=== PATIENT | female | born 1935 | race Caucasian/White ===

== ENCOUNTER 2018-11-03 17:34 | Emergency (ER) | payer OTHER ==
[~2018-11-03] VITALS: Ht 160 cm; Wt 54.4 kg
[~2018-11-03 17:34] MED LIST: ACET-2619 PO; ACET-787 PO; BISA10SU1 RC; DIPH25TA53 PO; DOCU-299 PO; FAMO-90 PO; LAC PO; MAGN400S60 PO; MULT-2173 PO; SENN-72 PO; SIMV20TA1 PO; ZOS3.375PM IV
[2018-11-03 18:28] VITALS: BP 116/57
--- NOTE | 2018-11-03 18:28 | NUR ---
PT BIB [facility] TO ER BED 5
--- NOTE | 2018-11-03 18:30 | NUR ---
PT BIB AMBULANCE TO THE ED FROM [facility] WITH THE CHIEF C/O RIGHT KNEE PAIN. PER REPORT, PT KNEE WAS NOTED SWOLLEN LAST NIGHT. X-RAY DONE IN [facility] SHOWED FRACTURE RIGHT KNEE. SWOLLEN AND BRUISE NOTED ON RIGHT KNEE. UNABLE TO MOVE LEG. VSS. FLACC 7/10. MEDICAL HX: CACHEXIA, MOOD DISORDER, ATHEROSCLEROTIC HEART, [place] CORONARY ARTERY ALLERGIES TO CUBICIN, FLUOXETINE, LEVOFLOXACIN, PENICILLINS AND RAMIPRIL
--- NOTE | 2018-11-03 18:41 | NUR ---
X-RAY AT THE BEDSIDE.
--- NOTE | 2018-11-03 18:47 | NUR ---
PT HAS AMPUTATED LEFT KNEE.
[2018-11-03 19:08] LABS: BASOPHILS % (AUTO) 0.4 % (0.0-2.0); EOSINOPHILS % (AUTO) 0.5 % (0.0-4.0); LYMPHOCYTES # (AUTO) 0.8 K/uL (2.5-16.5); LYMPHOCYTES % (AUTO) 13.1 % (20.5-51.1); MONOCYTES # (AUTO) 0.3 K/uL (0.8-1.0); MONOCYTES % (AUTO) 5.8 % (1.7-9.3); NEUTROPHILS # (AUTO) 4.8 K/uL (1.8-7.7); NEUTROPHILS % (AUTO) 80.2 % (42.2-75.2)
--- NOTE | 2018-11-03 19:22 | NUR ---
REPORT GIVEN TO BRICK MACHINE OPERATOR RN FOR CONTINUITY OF CARE.
--- NOTE | 2018-11-03 19:22 | NUR ---
bedside report received from YECENIA Mcclure. transfer of care at this time.
--- NOTE | 2018-11-03 19:59 | NUR ---
ERMD AT BEDSIDE
--- NOTE | 2018-11-03 19:59 | NUR ---
Dr. Douglas evaluating patient at bedside.
[2018-11-03] MEDS ORDERED: MORPHINE SULFATE 4 MG/ML SYR IVP ONE ×2 (20:00→21:05)
--- NOTE | 2018-11-03 20:30 | NUR ---
PT AWAKE. VSS. BEDRILS X2 UP. WILL CONTINUE TO MONITOR.
--- NOTE | 2018-11-03 20:53 | NUR ---
Ultrasound at bedside.
--- NOTE | 2018-11-03 21:10 | NUR ---
PT MOANING AND GRIMMACING. DR CAREY NOTIFIED.
[2018-11-03 21:36] LABS: HEMATOCRIT 28.5 % (36-48); HEMOGLOBIN 8.8 g/dL (12.0-16.0); RED BLOOD CELL COUNT(AUTO) 3.59 MIL/uL (4.20-5.40); WHITE BLOOD COUNT (AUTO) 7.1 K/uL (4.8-10.8)
[2018-11-03 21:37] LABS: MEAN CORPUSCULAR HEMOGLOBIN 24 pg (27-31); MEAN CORPUSCULAR HGB CONC 31 g/dL (33-37); MEAN CORPUSCULAR VOLUME 79.3 fL (80-94)
[2018-11-03 21:38] LABS: PLATELET COUNT (AUTO) 200 K/uL (140-450); RED CELL DISTRIBUTION WIDTH 20.5 % (11.6-13.7)
[2018-11-03 21:57] LABS: CARBON DIOXIDE 17.5 mmol/L (21-32); CHLORIDE 108 mmol/L (98-107); CREATININE 0.8 mg/dL (0.6-1.3); GLUCOSE 65 mg/dL (74-106); POTASSIUM 3.5 mmol/L (3.5-5.1); SODIUM SERUM 141 mmol/L (136-145); UREA NITROGEN, BLOOD 56 mg/dL (7-18)
[2018-11-03 22:02] LABS: ALBUMIN 3.2 g/dL (3.4-5.0); ASPARTATE AMINOTRANSFERASE 16 U/L (15-37); TOTAL BILIRUBIN 0.7 mg/dL (0.0-1.0)
[2018-11-03] MEDS ORDERED: LACT1CAP92 PO (22:07)
[2018-11-03] MEDS ORDERED: MEGE40TA4 PO (22:07)
[2018-11-03] MEDS ORDERED: MAGN400T7 PO (22:07)
[2018-11-03] MEDS ORDERED: DOCU-299 PO (22:07)
[2018-11-03] MEDS ORDERED: HYDR-5092 PO (22:07)
[2018-11-03] MEDS ORDERED: NA P133E RC (22:07)
[2018-11-03] MEDS ORDERED: MULT-153 PO (22:07)
[2018-11-03] MEDS ORDERED: MAGN400S60 PO (22:07)
[2018-11-03] MEDS ORDERED: FAMO-90 PO (22:07)
[2018-11-03] MEDS ORDERED: SENN-72 PO (22:07)
--- NOTE | 2018-11-03 22:15 | NUR ---
PT TAKEN TO CT.
[2018-11-03] MEDS ORDERED: NACL 0.9% 1,000 ML IV ONE (22:45)
[2018-11-03 23:15] LABS: APPEARANCE,URINE SL CLOUDY (CLEAR); BILIRUBIN,URINE NEGATIVE (NEGATIVE); BLOOD, URINE NEGATIVE (NEGATIVE); COLOR,URINE YELLOW (YELLOW); LEUKOCYTE ESTERASE ,URINE NEGATIVE (NEGATIVE); NITRITE, URINE NEGATIVE (NEGATIVE); PH,URINE 5.5 (5.0-9.0); UGLUCOSE NEGATIVE (NEGATIVE)
--- NOTE | 2018-11-03 23:15 | NUR ---
PT ASLEEP. EASILY AROUSABLE TO TOUCH. VSS. BEDRAILS X2 UP. WILL CONTINUE TO MONITOR.
[2018-11-04] MEDS ORDERED: DEXTROSE 50% 50 ML SYR IVP ONE (00:10)
--- NOTE | 2018-11-04 00:36 | NUR ---
[facility] CALLED, SPOKE WITH JOSE C KOWALSKI. REPORT NUMBER IS [phone].
--- NOTE | 2018-11-04 01:30 | NUR ---
PT ASLEEP AT THIS TIME. VSS. AROUSABLE TO TOUCH.
--- NOTE | 2018-11-04 02:07 | NUR ---
CALLED REPORT TO YECENIA ABDALLA AT [facility]. [facility]UL[facility], ETA [phone].
--- NOTE | 2018-11-04 02:10 | NUR ---
EMS ARRIVED [facility] TRANSPORT TO [facility].
[2018-11-04] MEDS ORDERED: MORPHINE SULFATE 4 MG/ML SYR IVP ONE (02:20)
[2018-11-04 02:25] VITALS: BP 102/55
--- NOTE | 2018-11-04 02:25 | NUR ---
Patient to be transferred to . Is being transferred due to higher level of care. Receiving facility has accepting physician and available space. ER physician has signed transfer form. Patient or responsible green party has agreed to transfer and signed form. Patient belongings inventoried and will be sent with patient. Copy of nursing notes, lab reports, EKG, Physicians Orders and X-rays to be sent with patient. Report called to YECENIA Vences at receiving facility. Transferred at this time.
[2018-11-04] MEDS ORDERED: MORPHINE SULFATE 4 MG/ML SYR ONE (02:28)
== END 2018-11-04 02:25 | disposition short-term general hospital (02) ==
LOC: MED 17:34
DX: S72.491A Other fracture of lower end of right femur, initial encounter for closed fracture (principal); E16.2 Hypoglycemia, unspecified; D64.9 Anemia, unspecified; E86.0 Dehydration; F03.90 Unspecified dementia, unspecified severity, without behavioral disturbance, psychotic disturbance, mood disturbance, and anxiety; I10 Essential (primary) hypertension; Z89.512 Acquired absence of left leg below knee; Z86.73 Personal history of transient ischemic attack (TIA), and cerebral infarction without residual deficits; Z79.899 Other long term (current) drug therapy; Z79.891 Long term (current) use of opiate analgesic; Z88.1 Allergy status to other antibiotic agents; Z88.8 Allergy status to other drugs, medicaments and biological substances; X58.XXXA Exposure to other specified factors, initial encounter; Y93.89 Activity, other specified; Y92.89 Other specified places as the place of occurrence of the external cause; Y99.8 Other external cause status
CPT/HCPCS: 36415; 51702; 70450; 73521; 73562; 80053; 81003; 82948; 85025; 93005; 93970; 96361; 96374; 96375; 96376; 99285; J2270; J7030; Q0092; C1758